=== PATIENT | female | born 1970 ===

== ENCOUNTER 2018-08-21 11:09 | Emergency (ER) | payer OTHER ==
[2018-08-21 11:28] VITALS: BP 136/95
--- NOTE | 2018-08-21 11:30 | UC ---
Dizzy HPI HPI Summary: 48 yo female presents with dizziness. She tells me that she has a long history of vertigo for which she takes meclizine prn and about 2 months ago had a right ear tube placed for this. Has been helping. Last night she slipped on the ice and fell forward striking her right forehead against the sidewalk. No LOC or other injury. Was able to get to her feet and was symptoms free last night. This morning she woke with dizziness and vomiting. She feels off balance and like she has vertigo. She took ibuprofen and meclizine, but has no change in her symptoms. She has vomited about 5-6 times so far this morning. Has trouble walking without assistance, but pt and say that this is "how she gets when she gets vertigo". She does not take any blood thinners. Denies headache, vision changes, weakness, SOB, chest pain, abdominal pain. - History Of Current Complaint Chief Complaint: UCHeadInjury Stated Complaint: DIZZINESS Hx Obtained From: Patient Hx Last Menstrual Period: NOW Onset/Duration: Sudden Onset Timing: Constant Pain Intensity: 0 - Allergies/Home Medications Allergies/Adverse Reactions: Allergies Allergy/AdvReac Type Severity Reaction Status Date / Time No Known Allergies Allergy Verified 08/21/18 11:28 PMH/Surg Hx/FS Hx/Imm Hx - Additional Past Medical History Additional PMH: Vertigo - Surgical History Surgical History: Yes Surgery Procedure, Year, and Place: - Family History Known Family History: Positive: Hypertension - Social History Occupation: Employed Full-time Lives: With Family Alcohol Use: Rare Substance Use Type: None Smoking Status (MU): Never Smoked Tobacco Review of Systems All Other Systems Reviewed And Are Negative: Yes Constitutional: Positive: Negative Skin: Positive: Negative Eyes: Positive: Negative ENT: Positive: Negative Respiratory: Positive: Negative Cardiovascular: Positive: Negative Gastrointestinal: Positive: Negative Neurovascular: Positive: Negative Musculoskeletal: Positive: Negative Neurological: Positive: Other - Dizziness Psychological: Positive: Negative Physical Exam - Summary Physical Exam Summary: GENERAL: NAD. WDWN. Keeps eyes closed due to dizziness. SKIN: No rashes, sores, ulcers, masses, lesions. HEENT: Head: AT/NC. No raccoon eyes or battles sign. No hematoma. Eyes: PERRLA. EOM intact. Ears: Hearing grossly normal. TMs intact, no bulging, erythema, or edema. No hemotympanum NECK: Supple. Nontender. FROM. CHEST: CTAB. No r/r/w. No accessory muscle use. Breathing comfortably and in no distress. CV: RRR. Without m/r/g. Pulses intact. Brisk cap refill. ABDOMEN: Soft. NTTP. Bowel sounds present MSK: FROM in B/L UEs and LEs with symmetric strength. NEURO: A&Ox3. 3 word recall, remote, recent memory, ability to follow 2-step directions, and attention intact. CN: II: Peripheral sevilla intact. Vision normal. III, IV, : EOMI. MODERATE HORIZONTAL NYSTAGMUS B/L. PERRLA. V: Sensations intact and symmetric. Opens mouth and clenches teeth. VII: No facial asymmetry. Forehead wrinkles. Grins, shuts eyes, frowns, puffs cheeks. VIII: Hearing intact to finger rub. IX, X: Swallows and coughs. Uvula midline. XI: Shrugs shoulders. Turns head against resistance. XII: No tongue deviation [id number] are intact. Gait with normal base. Romberg: maintains balance, no pronator drift. Normal speech. No facial drooping. PSYCH: Age appropriate behavior. Triage Information Reviewed: Yes Vital Signs: Initial Vital Signs Temp 97.4 F 08/21/18 11:22 Pulse 74 08/21/18 11:22 Resp 16 08/21/18 11:22 BP 136/95 08/21/18 11:22 Pulse Ox 100 08/21/18 11:22 Vital Signs Reviewed: Yes Re-Evaluation - Re-Evaluation First Eval Re-Evaluation Time: 12:51 Change: Improved Comment: Feeling a bit better, just tired and wishes to be discharged at this point. No more vomiting since zofran Dizzy Course/Dx - Course Course Of Treatment: CT brain: IMPRESSION: NO ACUTE INTRACRANIAL PATHOLOGY. She was given zofran in the clinic with relief of her nausea/vomiting. She was given a dose of meclizine. On recheck she is improved - no more episodes of vomiting and feeling improved with her vertigo. She wishes to be discharged at this time. Advised of warning signs to be rechecked in the ED including headache , worsening dizziness, SOB, chest pain, or weakness/vision changes. Pt and voiced understanding - Differential Dx/Diagnosis Provider Diagnosis: Head injury, Vertigo Discharge - Sign-Out/Discharge Documenting (check all that apply): Patient Departure All imaging exams completed and their final reports reviewed: Yes - Discharge Plan Condition: Stable Disposition: HOME Prescriptions: Ondansetron ODT TAB* [Zofran 4 MG Odt TAB*] 4 mg PO Q8H PRN #12 tab.odt PRN Reason: Nausea Patient Education Materials: Vertigo (ED), Head Injury (ED) Referrals: Ekaterina Hughes MD [Primary Care Provider] - Additional Instructions: If you develop a headache, weakness, vision changes, fever, shortness of breath , chest pain, new or worsening symptoms - please call your PCP or go to the ED. Your blood pressure was mildly elevated at todays visit. Please see your primary provider within 4 weeks for recheck and re-evaluation. - Billing Disposition and Condition Condition: STABLE Disposition: Home
[2018-08-21] MEDS ORDERED: Ondansetron ODT TAB* 4 MG SL ONE (11:39)
[2018-08-21] MEDS ORDERED: Meclizine TAB* 12.5 MG PO ONE (12:09)
== END 2018-08-21 13:05 | disposition home or self-care (01) ==
LOC: UCEAST 11:09
DX: S09.90XA Unspecified injury of head, initial encounter (principal); R42 Dizziness and giddiness; X58.XXXA Exposure to other specified factors, initial encounter; Y92.9 Unspecified place or not applicable
CPT/HCPCS: 70450; 99212; A9270-GY; G0463